=== PATIENT | male | born 1980 | race Caucasian/White ===

== ENCOUNTER 2020-05-14 10:06 | Emergency (ER) | payer SELFPAY ==
[~2020-05-14] VITALS: Ht 182.9 cm; Wt 117.9 kg
--- NOTE | 2020-05-14 10:29 | NUR ---
Patient triaged in overflow tent.
--- NOTE | 2020-05-14 10:30 | NUR ---
Dr. Gore is evaluating the patient in the overflow tent.
--- NOTE | 2020-05-14 10:43 | NUR ---
SUBJECTIVE FEVER AND THROAT PAIN DAUGHTER EXPOSED TO A POSITIVE COVID-19 PT LAST WEEK FOR FATHER (PT) CONCERNED HE MAY HAVE IT NOW
--- NOTE | 2020-05-14 10:46 | NUR ---
SUBJECTIVE FEVER AND THROAT PAIN DAUGHTER EXPOSED TO A POSITIVE COVID-19 PT LAST WEEK FOR FATHER (PT) CONCERNED HE MAY HAVE IT NOW
== END 2020-05-14 10:54 | disposition home or self-care (01) ==
LOC: MED 10:06
DX: R50.9 Fever, unspecified (principal); Z20.828 Contact with and (suspected) exposure to other viral communicable diseases
CPT/HCPCS: 99281